=== PATIENT | male | born 1955 | race Caucasian/White ===

== ENCOUNTER 2017-07-10 10:20 | Emergency (ER) | payer SELFPAY ==
[2017-07-10 10:49] VITALS: BP 164/84; PULSE 87; RESP 18; TEMP 37.2; O2SAT 95; BMI 47.0
--- NOTE | 2017-07-10 11:04 | HMH.EDUTC ---
[facility] [place] Disposition Clinical Impression: Viral upper respiratory illness Disposition: Home, Self-Care Condition on Discharge: Good Instructions: DI for Viral Upper Respiratory Infection -- Adult Additional Instructions: * No sign of bacterial infection. Likely viral. Virus can take 7-14 days to run their course. Could be the flu with a false negative. No change in treatment plan with illness for 4 days already. * Monitor Temp. Tylenol every 4 hours as needed no more then 5 times a day or 4000mg in 24 hours and/or ibuprofen every 6 hours as needed no more then 3200mg in 24 hours (as long as your primary care doctor has told you that it is ok to take both) for fever/aches/pain. ER if fever no less than 101 despite tylenol and ibuprofen * Encourage fluids, water, gatorade, powerade, pedialyte if /toddler/child * warm salt water gargles * warm fluids * sore throat lozenges * sleep elevated * humidifier/vaporizer * use caution with OTC medications as they can both raise your BP and blood sugar, especially cold or sinus medications. Coricidin HBP products is recommended. Get the one that fits with your symptoms. * * Your throat swab was sent for culture. Those results are typically sent to your primary care. Be sure to follow up in 2-3 days if no improvement so they can review those results and treat if necessary. If you don't have primary care, I recommend you get one but in the mean time, you will have to return to a walk in clinic. Referrals: Provider,Referral, [Primary Care Provider] - (IMMEDIATELY for new or worsening symptoms OR no noticeable improvement over the next 48-72 hours. 911 for difficulty breathing or swallowing.) Forms: Work/School Release Time of Disposition: 11:23 Medical Decision Making Vital Signs: 07/10/17 10:49 Temperature 98.9 F Temperature Source Temporal Artery Scan Pulse Rate [Right] 87 Respiratory Rate 18 Blood Pressure [Right Arm] 164/84 Blood Pressure Mean [Right Arm] 110 Blood Pressure Source [Right Arm] Automatic Cuff Blood Pressure Position [Right Arm] Sitting 02 Sat by Pulse Oximetry 95 Oxygen Delivery Method Room Air - Lab Data Flu A negative Flu B negative Strep negative - Handy Inquiry Pt receiving controlled substance: No [facility] [place] HPI - General Stated complaint: poss flu Mode of Arrival: Ambulatory Source of Information: Patient Limitations: No Limitations Description of Symptoms (Recalled from Triage Doc. by RN): COUGH, CONGESTION SORE THROAT X3 DAYS HEENT Symptoms (Recalled from RN notes): Yes Resp Symptoms (Recalled from RN notes): No Skin Symptoms (Recalled from RN notes): No MS Symptoms (Recalled from RN notes): No Functional Status (Recalled from RN notes): N - History of Present Illness Provider Complaint: c/o possibly the flu . Cough x4 days after exposed to flu in grandson that they were caring for 06/26. Started feeling more tired yesterday. No energy. Called in today to rest and rule out flu. Needs work excuse. Triaminic helps but thinks may have raised blood sugar. Typically low 100's and 260 this morning. Also had dark chocolate last night for my treat . Tylenol helps w/ feeling feverish and aches that he was experiencing initially. Other home meds then listed include loratadine, flomax, janumet and finateride - Related Data Home Medications Medication Instructions Recorded Confirmed Bisoprolol Fumarate 10 mg PO DAILY 07/10/17 07/10/17 Metformin HCl [Metformin 500mg 0 mg PO BID 07/10/17 07/10/17 Tablet] Valsartan/Hydrochlorothiazide 1 each PO DAILY 07/10/17 07/10/17 [Valsartan-Hctz 160-25 mg Tab] glipiZIDE [Glipizide] 10 mg PO BID 07/10/17 07/10/17 Allergies Allergy/AdvReac Type Severity Reaction Status Date / Time No Known Allergies Allergy Verified 07/10/17 10:54 - Worker's Comp Is this a Worker's Comp case?: No [facility] History I have reviewed the patient's past medical history: Yes Medical History: Reports:: Diabet
[2017-07-10 11:07] LABS: UTC Influenza A Antigen Negative (Negative); UTC Influenza B Antigen Negative (Negative); UTC Strep Screen (Rapid) Negative (Negative)
--- NOTE | 2017-07-10 11:14 | ED_ITS ---
[facility] [place] Clinical Impression: Viral upper respiratory illness Disposition: Home, Self-Care Condition on Discharge: Good Instructions: DI for Viral Upper Respiratory Infection -- Adult Additional Instructions: * No sign of bacterial infection. Likely viral. Virus can take 7-14 days to run their course. Could be the flu with a false negative. No change in treatment plan with illness for 4 days already. * Monitor Temp. Tylenol every 4 hours as needed no more then 5 times a day or 4000mg in 24 hours and/or ibuprofen every 6 hours as needed no more then 3200mg in 24 hours (as long as your primary care doctor has told you that it is ok to take both) for fever/aches/pain. ER if fever no less than 101 despite tylenol and ibuprofen * Encourage fluids, water, gatorade, powerade, pedialyte if /toddler/ child * warm salt water gargles * warm fluids * sore throat lozenges * sleep elevated * humidifier/vaporizer * use caution with OTC medications as they can both raise your BP and blood sugar, especially cold or sinus medications. Coricidin HBP products is recommended. Get the one that fits with your symptoms. * * Your throat swab was sent for culture. Those results are typically sent to your primary care. Be sure to follow up in 2-3 days if no improvement so they can review those results and treat if necessary. If you don't have primary care , I recommend you get one but in the mean time, you will have to return to a walk in clinic. Referrals: Provider,Referral, [Primary Care Provider] - (IMMEDIATELY for new or worsening symptoms OR no noticeable improvement over the next 48-72 hours. 911 for difficulty breathing or swallowing.) Forms: Work/School Release Time of Disposition: 11:23 Medical Decision Making Vital Signs: 07/10/17 10:49 Temperature 98.9 F Temperature Source Temporal Artery Scan Pulse Rate [Right] 87 Respiratory Rate 18 Blood Pressure [Right Arm] 164/84 Blood Pressure Mean [Right Arm] 110 Blood Pressure Source [Right Arm] Automatic Cuff Blood Pressure Position [Right Arm] Sitting 02 Sat by Pulse Oximetry 95 Oxygen Delivery Method Room Air - Lab Data Flu A negative Flu B negative Strep negative - Handy Inquiry Pt receiving controlled substance: No [facility] [place] - General Stated complaint: poss flu Mode of Arrival: Ambulatory Source of Information: Patient Limitations: No Limitations Description of Symptoms (Recalled from Triage Doc. by RN): COUGH, CONGESTION SORE THROAT X3 DAYS HEENT Symptoms (Recalled from RN notes): Yes Resp Symptoms (Recalled from RN notes): No Skin Symptoms (Recalled from RN notes): No MS Symptoms (Recalled from RN notes): No Functional Status (Recalled from RN notes): N - History of Present Illness Provider Complaint: c/o possibly the flu . Cough x4 days after exposed to flu in grandson that they were caring for 06/26. Started feeling more tired yesterday. No energy. Called in today to rest and rule out flu. Needs work excuse. Triaminic helps but thinks may have raised blood sugar. Typically low 100's and 260 this morning. Also had dark chocolate last night for my treat . Tylenol helps w/ feeling feverish and aches that he was experiencing initially. Other home meds then listed include loratadine, flomax, janumet and finateride - Related Data Home Medications Medication Instructions Recorded Confirmed Bisoprolol Fumarate 10 mg PO DAILY 07/10/17 07/10/17 Metformin HCl [Metfo
== END 2017-07-10 11:38 | disposition home or self-care (01) ==
PROVIDERS: Emergency Provider Nurse Practitioner Family
DX: J06.9 Acute upper respiratory infection, unspecified (principal); E11.9 Type 2 diabetes mellitus without complications; Z79.899 Other long term (current) drug therapy; Z79.84 Long term (current) use of oral hypoglycemic drugs
CPT/HCPCS: 87275; 87276; 87430; 87804; 87880; 99202